=== PATIENT | female | born 1975 | race Native Hawaiian/Other Pacific Islander ===

== ENCOUNTER 2021-08-12 00:23 | Emergency (ER) | payer OTHER ==
[~2021-08-12] VITALS: Ht 160 cm; Wt 70.3 kg
[2021-08-12 00:25] VITALS: BP 123/84; TEMP 98.7
[2021-08-12] MEDS ORDERED: CLINDAMYCIN HY300 MG PO (01:54)
== END 2021-08-12 03:26 | disposition home or self-care (01) ==
LOC: ED 00:23
DX: L03.115 Cellulitis of right lower limb (principal)
CPT/HCPCS: 96365; 96375; 99284; J1885